=== PATIENT | male | born 1945 | race Caucasian/White ===

== ENCOUNTER → 2017-02-27 | Outpatient (CLI) | payer SELFPAY | END | disposition home or self-care (01) | LOC: LABPAT 15:05 | PROVIDERS: ATTEND Orthopaedic Surgery | DX: Z01.812 Encounter for preprocedural laboratory examination (principal) | CPT/HCPCS: 87070 ==

== ENCOUNTER 2017-03-08 10:37 | Inpatient (IN) | payer SELFPAY ==
[2017-02-28 14:41] VITALS: BMI 26.5
[~2017-03-08 10:37] MED LIST: ACETAMINOPHEN TAB 500 MG TAB PO ONE; DEXAMETHASONE SOD PHOSPHATE 10 MG/ML 1 ML VIAL IV ONE; FAMOTIDINE 20 MG/2 ML VIAL IV PRN; HYDROmorphone 1 MG/ML 1 ML SYRINGE IVP PRN; LIDOCAINE 1% 20 ML VIAL (10MG/ML) FOR IV START INTRADERMA PRN; MELOXICAM 7.5 MG TAB PO ONE; MIDAZOLAM 2 MG/2 ML VIAL IV PRN; ONDANSETRON 4 MG/2 ML VIAL IVP PRN; TRANEXAMIC ACID 1,000 MG in SODIUM CHLORIDE 0.9% 100 ML IVPB ONE; ceFAZolin 2 GM in SODIUM CHLORIDE 0.9% 100 ML IVPB ONE; fentaNYL (PF) 50 MCG/ML 20 ML VIAL IVP PRN
[2017-03-08] MEDS: LACTATED RINGERS 1,000 ML IV SCH (13:06)
[2017-03-08] MEDS ORDERED: fentaNYL (PF) 50 MCG/ML 2 ML AMP IV ONE (13:22)
[2017-03-08] MEDS ORDERED: ROPIVACAINE 1,100 MG, SODIUM CHLORIDE 0.9% 330 ML MISCELLANE PRN ×2 (13:45)
--- NOTE | 2017-03-08 13:47 | P.ONQ ---
Anesthesiology Proc Note - PNB - Peripheral Nerve Block Performed Right Adductor Canal Infusion Time Out Performed: Yes Indication: Acute Post-Operative Pain, Analgesia Specifically requested for management of pain by DrYuval: Seymour Rodriguez Sedation Type: Sedate with meaningful contact maintained Preparation: Sterile Prep Position: Supine Catheter Depth at Skin (cm): 6 Catheter: Indwelling Needle Types: Other (see comment) (URSZULA Mendez) Needle Size: 100mm (4") Needle Gauge: 21 Technique: Ultrasound Injectate: 0.5% Ropivacaine (see comment for volume) (20cc) Blood Aspirated: No Pain Paresthesia on Injection Noted: No Resistance on Injection: Normal Events: Uneventful and Well Tolerated
[2017-03-08 13:59] LABS: Glucose,Whole Blood 129 mg/dL (75-99)
[2017-03-08] MEDS ORDERED: NA PHOS,M-B/NA PHOS,DI-BA 133 ML ENEMA RECTAL PRN (14:43)
[2017-03-08] MEDS ORDERED: BISACODYL 10 MG SUPP RECTAL PRN (14:43)
[2017-03-08] MEDS ORDERED: DIAZEPAM 5 MG TAB PO PRN ×2 (14:43)
[2017-03-08] MEDS ORDERED: MAGNESIUM HYDROXIDE 2,400 MG/10 ML CUP PO PRN (14:43)
[2017-03-08] MEDS ORDERED: HYDROmorphone 1 MG/ML 1 ML SYRINGE IVP PRN ×3 (14:43)
[2017-03-08] MEDS ORDERED: hydrOXYzine PAMOATE 25 MG CAP PO PRN (14:43)
[2017-03-08] MEDS ORDERED: HYDROcodone/APAP 7.5-325MG 1 EACH TAB PO PRN (14:43)
[2017-03-08] MEDS ORDERED: ONDANSETRON 4 MG/2 ML VIAL IVP PRN (14:43)
[2017-03-08] MEDS ORDERED: NALOXONE 0.4 MG/ML 1 ML VIAL IV PRN (14:43)
[2017-03-08] MEDS ORDERED: PROPOFOL 10 MG/ML 20 ML VIAL IV ONE (15:12)
[2017-03-08] MEDS ORDERED: LIDOCAINE 1% INJ 10MG/ML (20 ML MDV) ONE (15:12)
[2017-03-08] MEDS ORDERED: MIDAZOLAM 2 MG/2 ML VIAL ONE (15:12)
[2017-03-08] MEDS ORDERED: fentaNYL (PF) 50 MCG/ML 2 ML AMP ONE (15:12)
[2017-03-08] MEDS ORDERED: ceFAZolin 3,000 MG in SODIUM CHLORIDE 0.9% IRRIGATIO 3,000 ML IRRIGATION ONE (15:51)
[2017-03-08] MEDS: ROPIVACAINE 246.25 MG, EPINEPHrine 0.5 MG, KETOROLAC 30 MG, cloNIDine HCL/PF 80 MCG, WA... MISCELLANE ONE ×10 (15:53→16:20)
--- NOTE | 2017-03-08 16:45 | P.OP ---
Date of Procedure: 03/08/17 Preoperative Diagnosis: Severe osteoarthritis right knee Postoperative Diagnosis: Severe osteoarthritis right knee Procedure(s) Performed: Right total knee arthroplasty Implants: Correa [employer] Nephew Oxinium femoral component size 6, right Correa [employer] Nephew Ne II right nonporous tibial baseplate size 7 Correa [employer] Nephew size 13 mm Legion XLPE dished articular insert, size 7-8 Correa [employer] Nephew Ne II resurfacing patellar component, 35 mm All components were cemented using Dana bone cement.. The articulation is ceramic on polyethylene. Anesthesia: spinal Surgeon: Seymour Rodriguez Healthcare Associate #1: Fozia Tran Estimated Blood Loss (ml): 50 Pathology: other (Bone and cartilage) Condition: stable Disposition: PACU Indications for Procedure: After failure of conservative treatment we discussed the surgical and nonsurgical treatment options at length. Patient wishes to proceed with a total knee arthroplasty. Complications specific to this procedure were discussed at length, including but not limited to infection, bleeding, stiffness , and nerve injury. Patient is aware of all these complications and informed consent was obtained Operative Findings: The operative findings are consistent with severe osteoarthritis of the right knee Description of Procedure: Patient was seen in the preoperative area consent was reviewed and operative site was marked with a skin marker. An adductor canal pain catheter was placed by anesthesia in the preoperative area. Patient was then brought to the operating room and given preoperative antibiotics intravenously. A spinal anesthetic was administered by the anesthesia department. A tourniquet was placed on the upper thigh and the lower extremity was prepped and draped in usual sterile fashion. A gram of transexamic acid was given. A universal timeout was then performed which confirmed the patient's name, surgical site, ALLERGIES, and consent. The lower extremity was then exsanguinated and tourniquet was inflated to 250 mmHg. A standard and anterior midline approach to the knee was performed. The skin and subcutaneous tissue was dissected down to the patellar tendon. A medial parapatellar arthrotomy was then performed. The knee was then extended, the patellar was everted, and the knee was again flexed. Anterior horns of both menisci were excised, and a release was performed to the posterior medial aspect of the knee. On gross visual inspection, there was complete loss of articular cartilage in the medial and patellofemoral joint spaces. There was also significant cartilage damage in the lateral compartment. There were multiple periarticular osteophytes which were then removed with a Ronguer. The femoral canal was then opened with the appropriate drill, and the intramedullary femoral cutting guide was then placed and set for 4 of valgus. The distal femoral cutting block was then pinned in place, and the distal femur was then cut. The cutting block was then removed and the cut was checked for flatness. Next, the sizing guide was then placed and set for 3 external rotation based off of the epicondylar axis and Whitesides line. After the femur was sized, the appropriate 4-in-1 cutting block was then pinned in place. The anterior condyles were cut without notching. The posterior and chamfer cuts were performed while protecting the collateral ligaments. The cutting block was then removed, and the femoral canal was plugged with autologous bone. Attention was then directed to the tibia. The remaining ACL was removed with a Ronguer, and the tibia was then gently subluxed forward with a large bent knee retractor. Any remaining menisci was excised. The posterior lateral corner was cauterized in order to cauterize the lateral geniculate artery. The extra medullary tibial cutting guide was then placed, set for the appropriate rotation , slope, and depth of resection. The proximal tibia cutting guide was then pinned in place. Proximal tibia was then cut and sized. Next trials were then placed with the appropriate-sized insert. The knee was able to fully extend and flex to 130 and was stable throughout all range of motion. The knee was then extended, patella everted. Patella was then measured, and then using an osteotomy guide, the patella was cut at the appropriate level. The patella was then measured and drilled and the patella trial was then placed. The knee was then taken through range of motion with the patella trial and the patella tracked normally. The knee was then extended patella trial was then removed and the patella was everted. Knee was then flexed and lug holes were drilled through the femoral trial and the femoral trial was then removed. The tibial was then exposed, and the tibial broach guide was then pinned in place after it was set for the appropriate rotation to allow for the most coverage without overhang. The tibia was then reamed and broached. The cut surfaces of bone were then irrigated with pulsatile lavage. The posterior structures were injected with the ropivacaine solution. The knee was also irrigated with Irrisept solution. The components were then opened, the cement was mixed, and the components were then cemented in place. The cement was allowed to harden with the knee in full extension. While the cement was hardening, the remaining soft tissues were then injected with a ropivacaine solution, which consisted of 246.25 mg of ropivacaine, 0.5 mg of epinephrine, 30 mg of Toradol, 80 g of clonidine, and 48.45 mL of sterile water, for a total of 100 mL of fluid injected. After the cemented hardened. The tourniquet was released, and hemostasis was obtained. A second gram of transexamic acid was given. The knee was again irrigated. The knee was again taken through range of motion and found to be stable throughout all range of motion of 0-130 , and the patella tracked normally. The fascia was then closed with #2 strata fix suture. The subcutaneous tissue was closed with 3-0 Vicryl and 3-0 strata fix. Dermabond tape was used for the skin and placed with the knee in flexion. The patient was placed in a sterile dressing. Patient was then transferred to recovery room in stable condition. The visitor services information assistant URSZULA Arce was required due the complexity surgery and the need for a skilled diver assistant. She assisted in positioning, draping, retraction, and closure of the wound.
[2017-03-08 17:11] VITALS: RESP 16
[2017-03-08] MEDS: SODIUM CHLORIDE 0.9% 1,000 ML IV SCH (19:56)
[2017-03-08] MEDS: ceFAZolin 2 GM in SODIUM CHLORIDE 0.9% 100 ML IVPB SCH (19:56)
--- NOTE | 2017-03-08 19:59 | XR ---
EXAMINATION TYPE: XR knee limited RT DATE OF EXAM: 03/08/2017 COMPARISON: NONE HISTORY: Postop TECHNIQUE: 2 views FINDINGS: There is a right total knee prosthesis. Components appear in anatomic position. There is mi ld knee joint effusion. IMPRESSION: Knee prosthesis. No fracture.
[2017-03-08] MEDS: ASPIRIN 325 MG TAB PO SCH (20:49)
[2017-03-08] MEDS ORDERED: SENNOSIDES-DOCUSATE SODIUM 1 EACH TAB PO SCH (21:00)
[2017-03-09] MEDS: LACTATED RINGERS 1,000 ML IV SCH (00:28)
[2017-03-09] MEDS: ceFAZolin 2 GM in SODIUM CHLORIDE 0.9% 100 ML IVPB SCH (01:53)
[2017-03-09] MEDS: HYDROcodone/APAP 7.5-325MG 1 EACH TAB PO PRN ×2 (03:21→08:54)
[2017-03-09 07:01] LABS: Basophils % (A) 0 %; CH 31.4; CHCM 35.2; Eosinophils # (A) 0.1 k/uL (0-0.7); Eosinophils % (A) 1 %; HCT 30.8 % (39.0-53.0); HDW 2.66; HGB 10.5 gm/dL (13.0-17.5); Luc # (Auto) 0.08; Luc % (Auto) 1; Lymphocytes # (A) 0.4 k/uL (1.0-4.8); Lymphocytes % (A) 4 %; MCH 30.5 pg (25.0-35.0); MCHC 34.1 g/dL (31.0-37.0); MCV 89.5 fL (80.0-100.0); Mean Platelet Volume 7.1; Monocytes # (A) 0.4 k/uL (0-1.0); Monocytes % (A) 4 %; Neutrophils # (A) 8.6 k/uL (1.3-7.7); Neutrophils % (A) 90 %; RBC 3.44 m/uL (4.30-5.90); RDW 12.6 % (11.5-15.5); WBC 9.6 k/uL (3.8-10.6); WBC (Perox) 10.24
[2017-03-09 07:27] LABS: Anion Gap 7 mmol/L; Blood Urea Nitrogen 17 mg/dL (9-20); Calcium 7.8 mg/dL (8.4-10.2); Carbon Dioxide 25 mmol/L (22-30); Chloride 92 mmol/L (98-107); Glucose 130 mg/dL (74-99); Non-African American GFR(MDRD) >60 (>60 ml/min/1.73 sqM); Potassium 3.8 mmol/L (3.5-5.1); Sodium 124 mmol/L (137-145)
[2017-03-09 08:00] VITALS: BP 126/60; PULSE 69; TEMP 97.6
[2017-03-09] MEDS: SODIUM CHLORIDE 0.9% 1,000 ML IV SCH (08:48)
[2017-03-09] MEDS: ASPIRIN 325 MG TAB PO SCH (08:49)
[2017-03-09] MEDS ORDERED: INDAPAMIDE 1.25 MG TAB PO SCH (09:00)
[2017-03-09] MEDS ORDERED: MELOXICAM 7.5 MG TAB PO SCH (09:00)
[2017-03-09] MEDS ORDERED: ATORVASTATIN 40 MG TAB PO SCH (09:00)
--- NOTE | 2017-03-09 09:54 | CONS ---
DATE OF SERVICE: 03/08/2017 REASON FOR CONSULTATION: hypertension, hyperlipidemia. Requested by orthopedic surgery. HISTORY OF PRESENT ILLNESS: This 71-year-old gentleman with the past medical history of hypertension, hyperlipidemia and DJD being followed by primary physician in [place], underwent right total knee arthroplasty by Dr. Rodriguez. There is no history of fevers or rigors. No history of headache, loss of consciousness or seizures. PAST MEDICAL HISTORY: History of hypertension, hyperlipidemia, DJD, history of hip joint arthroplasty. MEDICATION PRIOR TO ADMISSION: Home medications are: 1. Crestor 20 mg p.o. daily. 2. Lozol 1.25 mg p.o. daily. 3. Ecotrin 81 mg daily. 4. Senokot one tablet p.o. b.i.d. 5. Hydrocodone 7.25 q4-6 p.r.n. 6. Aspirin 325 mg p.o. b.i.d. ALLERGIES: None. FAMILY HISTORY: History of cancer in the family. SOCIAL HISTORY: No history of smoking or alcohol intake. REVIEW OF SYSTEMS: ENT: No diminished hearing, no diminished vision. CARDIOVASCULAR: No angina. RESPIRATORY: No cough. GI: No nausea. : No dysuria. NERVOUS SYSTEM: neg MUSCULOSKELETAL: As mentioned earlier. HEMATOLOGY: neg ENDOCRINE: No history of diabetes or hypothyroidism. CONSTITUTIONAL: As mentioned earlier. PSYCHIATRY: As mentioned earlier. PHYSICAL EXAMINATION: Alert and oriented x3. Pulse is 65, blood pressure 120/ 60, respirations 16, temperature 97.8, pulse ox 99% on room air. HEENT: Conjunctivae normal. Oral mucosa moist. NECK: No JVD. No thyroid enlargement. CARDIOVASCULAR; S1/S2. RESPIRATORY: Diminished breath sounds especially at the bases. No rhonchi, no crackles. ABDOMEN: Soft, nontender. LEGS: Status post right knee arthroplasty. NERVOUS SYSTEM: Higher functions as mentioned. Moves all four limbs. SKIN: No rash. LABS: Glucose 139. Otherwise, the previous labs are noted. ASSESSMENT: 1. Status post right knee arthroplasty. 2. Hypertension. 3. Hyperlipidemia. 4. History of degenerative joint disease. RECOMMENDATIONS AND DISCUSSION: This is a 71-year-old gentleman who presented after knee surgery. I recommend to continue current medication, continue symptomatic treatment, resume the home medications. Otherwise, aspirin may be initiated when okay with orthopedic surgery. Otherwise, I would also recommend repeat labs as well and will follow the patient closely with you. The patient will be advised to follow up with the primary physician closely. Thank you Dr. Rodriguez for letting me participate in this patient's care. NIKIA
--- NOTE | 2017-03-09 10:01 | P.PN ---
Progress Note - Text 0902 anesthesia POD 1. Patient is status post right TKR under spinal anesthesia with a right adductor canal catheter placed for postoperative pain relief. Catheter site is clean dry and intact. With ropivacaine 0.2% running at 8 mL per hour the patient's VAS is (2, 4). Assessment: Adequate pain control. Plan: As before.
--- NOTE | 2017-03-09 10:30 | P.DS ---
Providers Date of admission: 03/08/17 12:03 Expected date of discharge: 03/09/17 Attending physician: Seymour Rodriguez Consults: 03/08/17 14:43 Consult Physician Routine Consulting Provider: Juan Carlos Orellana Consult Reason/Comments: medical management Do you want consulting provider notified?: Yes Primary care physician: Physician Nonstaff - Discharge Diagnosis(es) (1) Osteoarthritis of right knee Current Visit: Yes Status: Acute Hospital Course: This is a pleasant 71-year-old male who presented with severe osteoarthritis of the right knee who failed outpatient conservative therapy. He was admitted for a right total knee arthroplasty performed by Dr. Seymour Rodriguez. The patient tolerated the procedure well and did well postoperatively. He has been eating and voiding without difficulty. He has been able to ambulate the hallways with the assistance of a walker without significant difficulty. He states he has a walker for home. He continues to have a On-Q pain pump intact which is providing relief of his symptoms. Patient states he is ready for discharge. Condition on day of discharge stable. Patient will be discharged home. Patient was cleared preoperatively for surgery. Patient currently denies any nausea, vomiting, fever, or chills. Patient is eating and voiding freely without difficulty. Patient should keep Dermabond intact over the right knee. He may shower without a dressing on this incision site is dry over the next 3 days. He states he has a CPM machine at home and should use this as prescribed. He will also continue with On-Q pain pump as prescribed and will discontinue this as ordered. He is given prescriptions for aspirin 325 mg 1 tab twice per day dispense 60, [place] 7.5 mg / 325 mg 1-2 tabs every 6 hours as needed for pain dispense 90, and Senokot S1 tab twice per day of discharge. Patient already has in home therapy set up as well. Physical Exam Total Knee Arthroplasty: Status post surgical day number 1 Patient is awake, alert, and oriented 3 Vital signs stable Good chest excursion with deep inspiration and expiration Abdomen soft nontender No signs or symptoms of DVT; no calf pain Dressing is clean, dry, and intact; no erythema, purulence, or signs of infection Patient has full foot and ankle motion without difficulty bilateral lower extremities Dorsiflexion, plantar flexion, and extensor hallucis longus positive sustained bilaterally Neurovascular status left lower extremity intact Capillary refill lower extremity is bilaterally less than 2 seconds On-Q pain pump intact Procedures: Right total knee arthroplasty Patient Condition at Discharge: Stable Plan - Discharge Summary New Discharge Prescriptions: New Aspirin 325 mg PO BID #60 tab HYDROcodone/APAP 7.5-325MG [[place] 7.5-325] 1 - 2 each PO Q6HR PRN #90 tab PRN Reason: Pain Sennosides-Docusate Sodium [Senokot-S] 1 tab PO BID PRN #60 tablet PRN Reason: Constipation No Action Aspirin EC [Ecotrin Low Dose] 81 mg PO DAILY Indapamide [Lozol] 1.25 mg PO DAILY Rosuvastatin [Crestor] 20 mg PO DAILY Discharge Medication List Aspirin EC [Ecotrin Low Dose] 81 mg PO DAILY 02/28/17 [History] Indapamide [Lozol] 1.25 mg PO DAILY 02/28/17 [History] Rosuvastatin [Crestor] 20 mg PO DAILY 02/28/17 [History] Aspirin 325 mg PO BID #60 tab 03/09/17 [Rx] HYDROcodone/APAP 7.5-325MG [[place] 7.5-325] 1 - 2 each PO Q6HR PRN #90 tab [Rx] Sennosides-Docusate Sodium [Senokot-S] 1 tab PO BID PRN #60 tablet 03/09/17 [Rx] Follow up Appointment(s)/Referral(s): Seymour Rodriguez DO [Doctor of Osteopathic Medicine] - 2 Weeks Ambulatory/Diagnostic Orders: Continuous Passive Motion (CPM) Machine [DME.AMB1] Time Frame: 2 Weeks, Location : Determined By Patient Activity/Diet/Wound Care/Special Instructions: Weightbearing as tolerated with a walker CPM 5-6h daily Daily dressing changes, keep incision clean and dry May shower if no drainage from incision Call [facility] with questions or concerns [phone] Discharge Disposition: HOME SELF-CARE
--- NOTE | 2017-03-09 19:34 | P.PN ---
Progress Note - Text DATE OF SERVICE: 03/09/2017 PRESENTING COMPLAINT: Right knee pain INTERVAL HISTORY: 71-year-old male with severe osteoarthritis of the right knee failed conservative outpatient treatment. Admitted for right total knee arthroplasty. Patient participating in physical therapy without difficulty utilization of a walker, uses the CPM machine as directed. Appetite is been good, had a BM today , no fever chills nausea or vomiting. REVIEW OF SYSTEMS: Done for constitutional ,cardiovascular, GI, pulmonary with relevant findings as above. CURRENT MEDICATIONS Aspirin 325 by mouth twice a day hydrocodone 7.5 /325 one to 2 tabs every 6 hours, Crestor 20 mg daily. PHYSICAL EXAM VITAL SIGNS: temperature 97.6, pulse 69, respiratory rate 16, blood pressure 126 /60, oxygen saturation 96% on room air. GENERAL APPEARANCE: Lying in bed, not in distress EYES: Pupils equal. Conjunctiva normal. NECK: JVD not raised. Mass not palpable. RESPIRATORY: Respiratory effort normal. Lungs clear to auscultation. CARDIOVASCULAR: First and second sounds normal. No edema. ABDOMEN: Soft. Liver and spleen not palpable. No tenderness. No mass palpable. PSYCHIATRY: Alert and oriented x3. Mood and affect normal. MUSCULOSKELETAL: Right knee incision covered with Dermabond, patient able to have full range of motion, plantar dorsiflexion intact, positive DP and PT pulses. INVESTIGATIONS: Hemoglobin 10.5, sodium 124, BUN 17 creatinine 0.72 ASSESSMENT: -Status post right knee arthroplasty -Essential hypertension -Hyperlipidemia -Hyponatremia, likely hypoosmolar -Degenerative joint disease PLAN: Patient is being discharged today per orthopedic's. Patient was placed on a fluid restriction for sodium of 124, given specific directions about how to manage his fluid restriction, should be on a high sodium diet until patient returns to see his physician on Saturday, should also have basic metabolic panel drawn to evaluate sodium level. SEGMENT PRODUCER statement: Patient was seen and examined by nurse practitioner Moraima Valdez and all elements of the case discussed with attending Dr. Orellana
--- NOTE | 2017-03-11 09:05 | PN ---
DATE OF SERVICE: 03/09/17 ATTENDING NOTE: This patient seen and examined by me on 03/09/17. Discussed the care with my nurse practitioner, Ms. Valdez. The patient is status post right knee surgery, doing better, pain is controlled. On exam, lungs are clear. Cardiovascular: First and second sounds are normal. The patients sodium is down to 124. ASSESSMENT: 1. Hypernatremia, likely hyposmolar. The patient does drink excessive amounts of fluids he says. 2. Essential hypertension. 3. Hyperlipidemia. 4. Primary osteoarthritis of multiple joints. PLAN: The patient told to cut back on his fluid. Increase salt intake. Have repeat BNP as an outpatient with a doctor in [place]. Care was discussed in detail. NIKIA
== END 2017-03-09 14:06 | disposition home or self-care (01) | DRG 470 ==
LOC: 2ORMAIN 12:03 → 3SUR 17:02
PROVIDERS: ADMIT Orthopaedic Surgery; ATTEND Orthopaedic Surgery
PROC: 0SRC0J9 Replacement of Right Knee Joint with Synthetic Substitute, Cemented, Open Approach (ICD-10-PCS; principal; 2017-03-08 14:40)
DX: M17.11 Unilateral primary osteoarthritis, right knee (principal); E87.1 Hypo-osmolality and hyponatremia; I10 Essential (primary) hypertension; E78.5 Hyperlipidemia, unspecified; Z79.82 Long term (current) use of aspirin; Z79.899 Other long term (current) drug therapy
CPT/HCPCS: 80048; 85025; 88300